=== PATIENT | male | born 1965 | race Caucasian/White ===

== ENCOUNTER 2016-12-04 21:59 | Emergency (ER) | payer BC, OTHER ==
[2016-12-04 22:08] VITALS: TEMP 98.1; BMI 30.7
[2016-12-04] MEDS ORDERED: PREDNISONE 20 MG TAB PO ONE (22:22)
[2016-12-04] MEDS ORDERED: RANITIDINE 150 MG TAB PO ONE (22:22)
--- NOTE | 2016-12-04 22:27 | EDPRACDOC ---
- General Information Chief Complaint: Allergic Reaction Stated Complaint: ALLERGIC REACTION Time Seen by Provider: 12/04/16 22:21 Information Source: Patient Home Medications: Home Medications Epinephrine [Epipen 2-Haile] 0.3 mg IJ DAILY PRN #1 pen.injctr 12/30/15 Aspirin [Ecotrin] 81 mg PO DAILY 08/06/16 Atorvastatin Calcium [Lipitor] 40 mg PO QHS 08/06/16 BuPROPion (Daily formulation) [Wellbutrin Xl] 150 mg PO QHS 08/06/16 Carvedilol [Coreg] 6.25 mg PO BID 08/06/16 Hydrochlorothiazide 25 mg PO DAILY 08/06/16 Pantoprazole Sodium [Protonix] 40 mg PO QHS 08/06/16 Diphenhydramine [Benadryl] 25 mg PO TID #30 cap 12/05/16 Epinephrine [Epipen 2-Haile] 0.3 mg IJ . 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 HX OF FOOD ALLERGIES. PATIENT TOOK 2 BENADRYL SNUFF CONTAINER INSPECTOR AND EPIPEN. STARTED 1 HR AGO. ALREADY STARTING TO IMPROVE Exposure occurred: 20 min SNUFF CONTAINER INSPECTOR Exposed to: Food Symptoms started: Hours Symptoms Developed: Reports: Pruritus, Rash, Throat swelling Reaction Severity: Shortness of breath: Mild, Rash: Severe, Difficult swallowing : None, Prurits: Severe Modifying factors: improves with: Diphenhydramine Reaction Location: Reports: Generalized - Treatment Prior to ED Arrival Reported Medications/Treatment [employer] CONTAINER INSPECTOR Treated With Medication SNUFF CONTAINER INSPECTOR YES Medications SNUFF CONTAINER INSPECTOR (Medication/ epi pen Dose/Time) benadryl ED Past Medical History - History Reviewed Yes Nurses notes reviewed and agree except as marked Travel Outside of [place] in the Last 3 Months?: No - Patient Medical History Cardiac History: Reports: Hypertension, Hypercholesterolemia GI/ History: Reports: Kidney Stones Psychological History: Denies: Depression - Social Medical History Smoking Status: Former smoker ETOH: None Substance Abuse: None Lives With: Family Lives In: Home EDM Review of Systems - Review of Systems ROS Negative Except as Marked: Yes All systems reviewed and were negative except as marked Constitutional: Fatigue. negative: Chills, Fever, Loss of Appetite, Weakness Eyes: No Symptoms Reported. negative: Redness, Blurred Vision, Double Vision, Discharge, Pain, Light Sensitive, Photophobia Ears: No Symptoms Reported. negative: Pain, Hearing Loss, Drainage, Ear Pulling Throat: No Symptoms Reported. negative: Pain, Swelling Nose: No Symptoms Reported. negative: Congestion, Bleeding, Discharge, Injection, Swelling, Deformity, Ecchymosis, Tender, Abrasion, Laceration Mouth: No Symptoms Reported. negative: Pain, Drooling Respiratory: No Symptoms Reported. negative: Cough, Brassy Cough, Barky Cough, Shortness of Breath, Wheezing, Hemoptysis Cardiovascular: No Symptoms Reported. negative: Chest Pain, Palpitations, Syncope, Edema, Orthopnea, PND, Skin Mottling, Cyanosis Gastrointestinal: No Symptoms Reported. negative: Pain, Constipation, Nausea, Vomiting, Diarrhea, Melena, Formula Intolerance Genitourinary: No Symptoms Reported. negative: Dysuria, Hematuria, Frequency, Discharge, Bleeding, Testicular Pain, Neurological: No Symptoms Reported. negative: Headache, Dizziness, Seizure, Numbness, Weakness, Speech Difficulty, Gait Difficulty Musculoskeletal: No Symptoms Reported. negative: Neck, Chestwall, Ribs, Back, Shoulder, Arm, Elbow, Forearm, Wrist, Hand, Pelvis, Hip, Femur, Knee, Leg, Ankle , Foot Integumentary: Itching, Rash. negative: Bruising, Wound Allergic/Immunologic: Hives, Itching Hematologic: No Symptoms Reported. negative: Lymphadenopathy, Easy Bruising, Easy Bleeding Endocrine: No Symptoms Reported. negative: Weight Gain, Weight Loss Psychiatric: No Symptoms Reported. negative: Anxiety, Depression, Hallucinations, Insomnia, Suicidal - Physical Exam Constitutional: Alert (Awake) Oriented to: Time, Person, Place Last recorded Vital Signs: Last Vital Signs Temp 98.1 F 12/04/16 22:05 Pulse 88 12/04/16 22:05 Resp 20 12/04/16 22:05 BP 176/89 12/04/16 22:05 Pulse Ox 97 12/04/16 22:05 Oxygen Pulse Oxygen Saturation 97 O2 Device Room Air Oxygen Flow Rate Fraction of Inspired Oxygen ( FIO2) - HEENT Head: Normal ( normocephalic) Eye Exam: Normal (PERRL, EOMI, Sclera white) Oropharynx: Normal (Pharynx:Moist without exudate,Gums-no swelling) Tympanic Membrane: Normal ENT EAC: Normal TMJ: Normal Nose: No Symptoms Reported (septum midline) Neck: Normal (FROM, trachea at midline) - Respiratory/Cardiovascular Respiratory: Normal - CTA (BBS clear to auscultation without adventitious sounds ) Cardiovascular: Normal (RRR without murmur, gallop or rub) - GI Auscultation: Normal (NABS) Palpation: Normal (Soft,No rebound or guarding, non distended) Tenderness: Non tender Arroyo's Sign: Negative - Bladder: Normal - Musculoskeletal Back: Normal (Non-Tender) Extremities: Normal (Normal tone, Pulses 2+ No cyanosis or edema, FROM) - Integumentary Skin: Warm, Dry, Rash Lymphatics: Normal (no adenopathy) - Neurologic Memory Impaired: Normal Motor Function: Normal (Normal tone, Pulses 2+ No cyanosis or edema, FROM) Cranial Nerve: Normal (CN II-X11 intact sensation, strength 5/5) Cerebellar: Normal Mood Description: Normal Perception: Normal - Re-evaluation Re-evaluation 1 Re-evaluation Time: 23:10 Re-evaluation 2 Re-evaluation Time: 00:03 (PATIENT HAS DECREASED RASH. NO SWELLING THROAT) Decision Time to Discharge: 00:04 - Departure Yes I personally saw and evaluated the patient. Disposition: Home Condition: Good Final Diagnosis: Allergic reaction Qualifiers: Encounter type: initial encounter Qualified Code(s): T78.40XA - Allergy, unspecified, initial encounter Instructions: Allergic Reaction Education/Counseling Given To: Patient Education/Counseling Given Regarding: Diagnosis, Treatment, Prognosis, Follow Up Referrals: Dewayne Palomares MD [Primary Care Provider] - One Week Prescriptions: New Diphenhydramine [Benadryl] 25 mg PO TID #30 cap Epinephrine [Epipen 2-Haile] 0.3 mg IJ . PRN #1 pen.injctr PRN Reason: Rash Prednisone [Sterapred 5 mg/6 day Uni-Pack] 21 tab PO DIR #1 pack Ranitidine HCl [Zantac] 150 mg PO DAILY #30 tablet No Action Epinephrine [Epipen 2-Haile] 0.3 mg IJ DAILY PRN #1 pen.injctr PRN Reason: Allergy Symptoms Hydrochlorothiazide 25 mg PO DAILY BuPROPion (Daily formulation) [Wellbutrin Xl] 150 mg PO QHS Atorvastatin Calcium [Lipitor] 40 mg PO QHS Carvedilol [Coreg] 6.25 mg PO BID Aspirin [Ecotrin] 81 mg PO DAILY Pantoprazole Sodium [Protonix] 40 mg PO QHS
[2016-12-05 00:28] VITALS: BP 152/79; PULSE 77
== END 2016-12-05 00:27 | disposition home or self-care (01) ==
LOC: ED 21:59
DX: T78.40XA Allergy, unspecified, initial encounter (principal); X58.XXXA Exposure to other specified factors, initial encounter; Y93.9 Activity, unspecified
CPT/HCPCS: 99283; J3490